=== PATIENT | male | born 1955 | race Hispanic/Latino ===

== ENCOUNTER 2018-09-12 23:32 | Emergency (ER) | payer MEDICAID ==
[~2018-09-12 23:32] MED LIST: ATOR20TA65 PO; LISI10TA7 PO; METF-446 PO; METO25TA6 PO
[2018-09-13 00:01] LABS: BASOPHILS % (AUTO) 0.5 % (0.0-5.0); EOSINOPHILS % (AUTO) 2.2 % (0.0-8.0); HEMATOCRIT 47.9 % (42-54); LYMPHOCYTES % (AUTO) 23.1 % (21.0-51.0); MEAN CORPUSCULAR HEMOGLOBIN 31.3 pg (27.0-33.0); MEAN CORPUSCULAR HGB CONC 34.2 g/dL (32.0-36.0); MEAN CORPUSCULAR VOLUME 91.4 fL (79-99); NEUTROPHILS % (AUTO) 66.2 % (40.0-77.0); NUCLEATED RED BLOOD CELLS 0.1 % (0.0-0.19); PLATELET COUNT (AUTO) 318 K/uL (130-400); RED BLOOD CELL COUNT(AUTO) 5.24 MIL/uL (4.50-6.20); RED CELL DISTRIBUTION WIDTH 13.6 % (11.0-15.5); WHITE BLOOD COUNT (AUTO) 11.9 K/uL (4.8-10.8)
[2018-09-13 00:10] LABS: CREATININE 0.9 mg/dL (0.5-1.5); POTASSIUM 3.6 mmol/L (3.5-5.1)
[2018-09-13 00:13] LABS: INR 0.9 (0.85-1.15); PARTIAL THROMBOPLASTIN TIME 26.2 SEC (26.3-35.5); PROTHROMBIN TIME 9.5 SEC (9.6-11.6)
[2018-09-13 00:14] LABS: APPEARANCE,URINE Clear (CLEAR); BILIRUBIN,URINE Negative (NEGATIVE); COLOR,URINE Yellow (YELLOW); GLUCOSE, URINE (UA) >=1000 mg/dL (NEGATIVE); KETONES,URINE Trace mg/dL (NEGATIVE); LEUKOCYTE ESTERASE ,URINE Negative (NEGATIVE); NITRATE,URINE Negative (NEGATIVE); OCCULT BLOOD,URINE Trace (NEGATIVE); PROTEIN,URINE POS 2+ (NEGATIVE)
[2018-09-13 00:14] LABS: ALBUMIN 3.8 g/dL (3.5-5.0); BILIRUBIN,TOTAL 0.2 mg/dL (0.2-1.0); TOTAL PROTEIN, SERUM 7.7 g/dL (6.0-8.3)
[2018-09-13 00:21] LABS: BACTERIA,URINE None Seen /HPF (None Seen); MUCUS,URINE Few LPF (None Seen); SQUAMOUS EPITHELIAL CELL,UR Few /HPF (0-2); WBC,URINE None Seen /HPF (0-1)
[2018-09-13] MEDS ORDERED: SODIUM CHLORIDE 0.9% 1000ML 1,000 ML IV ONE (00:55)
[2018-09-13] MEDS ORDERED: MECLIZINE HCL 25 MG TABLET ONE (02:02)
== END 2018-09-13 02:16 | disposition home or self-care (01) ==
LOC: EDH 23:32
DX: H81.10 Benign paroxysmal vertigo, unspecified ear (principal); E86.9 Volume depletion, unspecified; E11.9 Type 2 diabetes mellitus without complications; E78.5 Hyperlipidemia, unspecified; I10 Essential (primary) hypertension; R79.1 Abnormal coagulation profile; Z72.0 Tobacco use; Z88.0 Allergy status to penicillin; Z96.60 Presence of unspecified orthopedic joint implant
CPT/HCPCS: 36415; 70450; 71045; 80053; 81001; 82550; 82948; 84484; 85025; 85610; 85730; 93005; 96360; 99284; J7030

== ENCOUNTER 2018-12-23 06:50 | Inpatient (IN) | payer MEDICAID ==
[~2018-12-23] VITALS: Ht 167.6 cm; Wt 65.5 kg
[2018-12-23 07:31] LABS: BASOPHILS % (AUTO) 0.5 % (0.0-5.0); EOSINOPHILS % (AUTO) 2.9 % (0.0-8.0); HEMATOCRIT 45.2 % (42-54); LYMPHOCYTES % (AUTO) 25.3 % (21.0-51.0); MEAN CORPUSCULAR HEMOGLOBIN 31.8 pg (27.0-33.0); MEAN CORPUSCULAR HGB CONC 34.9 g/dL (32.0-36.0); MEAN CORPUSCULAR VOLUME 91.2 fL (79-99); MONOCYTES % (AUTO) 8.3 % (3.0-13.0); PLATELET COUNT (AUTO) 279 K/uL (130-400); RED BLOOD CELL COUNT(AUTO) 4.96 MIL/uL (4.50-6.20); RED CELL DISTRIBUTION WIDTH 13.9 % (11.0-15.5); WHITE BLOOD COUNT (AUTO) 12.1 K/uL (4.8-10.8)
[2018-12-23 07:45] LABS: CREATININE 0.7 mg/dL (0.5-1.5); POTASSIUM 5.3 mmol/L (3.5-5.1)
[2018-12-23 07:56] LABS: ALBUMIN 3.5 g/dL (3.5-5.0); BILIRUBIN,TOTAL 0.5 mg/dL (0.2-1.0); TOTAL PROTEIN, SERUM 7.6 g/dL (6.0-8.3)
[2018-12-23 07:59] LABS: INR 0.99 (0.85-1.15); PARTIAL THROMBOPLASTIN TIME 28.9 SEC (26.3-35.5); PROTHROMBIN TIME 10.4 SEC (9.6-11.6)
[2018-12-23] MEDS ORDERED: SODIUM POLYSTYRENE SULFONATE 15 GM/60 ML ML ONE (08:37)
[2018-12-23] MEDS ORDERED: INSULIN HUMULIN R 100 UNIT/ML 3ML ONE (08:37)
[2018-12-23 09:34] LABS: APPEARANCE,URINE Clear (CLEAR); BILIRUBIN,URINE Negative (NEGATIVE); COLOR,URINE Yellow (YELLOW); GLUCOSE, URINE (UA) TRACE mg/dL (NEGATIVE); KETONES,URINE Negative (NEGATIVE); LEUKOCYTE ESTERASE ,URINE Negative (NEGATIVE); NITRATE,URINE Negative (NEGATIVE); OCCULT BLOOD,URINE Negative (NEGATIVE); PH,URINE 5.5 (5.0-8.0); PROTEIN,URINE POS 1+ mg/dL (NEGATIVE)
[2018-12-23 09:40] LABS: BACTERIA,URINE Rare /HPF (None Seen); MUCUS,URINE Rare LPF (None Seen); RBC,URINE 0-1 /HPF (0-1); SQUAMOUS EPITHELIAL CELL,UR Rare /HPF (0-2); WBC,URINE 0-1 /HPF (0-1)
[2018-12-23 09:42] LABS: AMPHET/METH SCREEN,URINE NEGATIVE (NEGATIVE); BARBITURATE SCREEN, URINE NEGATIVE (NEGATIVE); BENZODIAZEPINES SCREEN,URINE NEGATIVE (NEGATIVE); CANNABINOID SCREEN,URINE NEGATIVE (NEGATIVE); COCAINE SCREEN,URINE NEGATIVE (NEGATIVE); OPIATE SCREEN,URINE NEGATIVE (NEGATIVE); PHENCYCLIDINE SCREEN,URINE NEGATIVE (NEGATIVE)
[2018-12-23] MEDS ORDERED: ONDANSETRON HCL 4 MG/2 ML VIAL IV PRN (10:00)
[2018-12-23] MEDS ORDERED: LACTULOSE 20 GM/30 ML UDCUP PO PRN (10:00)
[2018-12-23] MEDS ORDERED: MAG HYDROX/AL HYDROX/SIMETH ES 30 ML SUSP UDCUP PO PRN (10:00)
[2018-12-23] MEDS ORDERED: ACETAMINOPHEN 325 MG TAB PO PRN ×2 (10:00)
[2018-12-23 10:20] LABS: HEMOGLOBIN A1C 7.6 % (4.0-6.0)
[2018-12-23] MEDS: NICOTINE 21 MG/ 24 HR PATCH TD SCH (11:00)
[2018-12-23] MEDS: INSULIN LISPRO 100 UNIT/ML 3ML SQ SCH ×2 (11:30→15:31)
[2018-12-23] MEDS: INSULIN HUMULIN R 100 UNIT/ML 3ML SQ SCH ×3 (11:30→21:00)
[2018-12-23] MEDS ORDERED: ASPIRIN 81MG TAB.CHEW ONE (11:51)
[2018-12-23] MEDS ORDERED: FAMOTIDINE/PF 20 MG/2 ML VIAL IV ONE (11:52)
--- NOTE | 2018-12-23 12:12 | NUR ---
DYSPHAGIA EVAL COMPLETED. -S/S OF ASPIRATION. RECOMMEND REGULAR, THIN LIQUIDS; PILLS WHOLE WITH LIQUIDS. PATIENT INFORMATION: Pt IS A 63 YEAR OLD MALE REFERRED FOR A BEDSIDE SWALLOW EVALUATION SECONDARY TO POSSIBLE CVA. Pt AAOX3 AND COOPERATIVE DURING THE EVALUATION. Pt REPORTS THAT HE HAS BEEN HAVING LEFT SIDED NUMBNESS SINCE JUNE OF 2018. Pt CURRENTLY ADMITTED SECONDARY TO SUSPECTED CVA AND LEFT HEMIPARESIS. Pt HAS A PAST MEDICAL HISTORY SIGNIFICANT FOR DM-NIDDM, HYPERLIPIDEMIA, HYPERTENSION, JOINT REPLACEMENT/SHOULDER SURGERY. EVALUATION: SWALLOW FUNCTION AND EFFICIENCY WITHIN FUNCTIONAL LIMITS. ORAL MOTOR COORDINATION, ROM AND STRENGTH WITHIN FUNCTIONAL LIMITS. PHARYNGEAL RESPONSE TIMELY WITH ADEQUATE LARYNGEAL ELEVATION/EXCURSION. NO S/S OF ASPIRATION PRESENT AT THE TIME OF THE EVALUATION. RECOMMENDATIONS: 1. REGULAR, THIN LIQUIDS; PILLS WHOLE WITH LIQUIDS. 2. COMPENSATORY STRATEGIES (PROPHYLAXIS): *SEATED AT 90 DEGREES G-CODES SWALLOWING: [id number] Addendum: 12/23/18 at 1218 by DEYVI WYNN [facility] Amended: Links added.
--- NOTE | 2018-12-23 14:40 | NUR ---
MEDS PT UNABLE TO GIVE ME MEDICATION LIST. DOES NOT KNOW. NO FAMILY AT BEDSIDE.
--- NOTE | 2018-12-23 15:08 | NUR ---
ARRIVAL TO FLOOR AAOX4 DENIES CP DENIES SOB DENIES NV NO COMPLAINTS. NOTED SOME LEFT SIDE WEAKNESS UPPER AND LOWER EXTREMITIES. SPEECH IS CLEAR. BREATHING PATTERN IS UNLABORED. ARRIVED WITH NO HOME MEDS. NO FAMILY AT BEDSIDE.
[2018-12-23 15:48] VITALS: BP 165/89
--- NOTE | 2018-12-23 16:30 | NUR ---
DINNER TOLERATED DINNER. NO COMPLAINTS DENIES PAIN. NO CHOKING NO GAGGING NOTED NO COUGHING NOTED. VISITOR AT BEDSIDE.
[2018-12-23] MEDS ORDERED: GABA-529 PO (18:33)
[2018-12-23] MEDS ORDERED: LOSA50TA64 PO (18:33)
[2018-12-23] MEDS ORDERED: GLYB-226 PO (18:33)
[2018-12-23] MEDS ORDERED: SIMV10TA6 PO (18:33)
[2018-12-23] MEDS ORDERED: MECL-111 PO (18:33)
[2018-12-23] MEDS ORDERED: ASPI-1026 PO (18:33)
--- NOTE | 2018-12-23 18:34 | NUR ---
MED LIST OBTAINED FROM [facility]ACIST J[facility]ONNY, ENTERED IN [employer].
[2018-12-23 19:38] VITALS: BP 157/83
[2018-12-23] MEDS ORDERED: HYDRALAZINE HCL 20 MG/ML VIAL IV PRN (19:45)
[2018-12-23] MEDS: FAMOTIDINE/PF 20 MG/2 ML VIAL IV SCH (21:34)
[2018-12-23] MEDS: ATORVASTATIN CALCIUM 40 MG TABLET PO SCH (21:34)
[2018-12-23] MEDS: INSULIN GLARGINE 100 UNITS/ML 10 ML VIAL SQ SCH (21:41)
[2018-12-24] VITALS (7 sets, daily range): BP systolic 147–166; BP diastolic 72–85
[2018-12-24 03:43] LABS: CHOLESTEROL 199 mg/dL (<200); HDL CHOLESTEROL 28 mg/dL (29-71); LDL DIRECT 144 mg/dL (0-99); TRIGLYCERIDES 214 mg/dL (30-200)
--- NOTE | 2018-12-24 04:02 | NUR ---
PATIENT ALERT AND ORIENTED ANSWERS QUESTIONS APPROPRIATELY. FOLLOWS COMMANDS. DENIES CHEST PAIN OR SOB. FACE SYMMETRICAL. PATIENT'S HOGSHEAD STRIPPER UNEQUAL. 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 NO DRIFT TO ARMS. DRIFT TO LLE. LIMB ATAXIA PRESENT BOTH LUE AND LLE. NO APHASIA NOTICED. NO DYSARTHRIA NOTICED. WILL CONTINUE TO MONITOR DEFICITS AND BLOOD PRESSURE. PRN BLOOD PRESSURE MED ORDERED BY AYAN OJEDA.
[2018-12-24] MEDS: INSULIN HUMULIN R 100 UNIT/ML 3ML SQ SCH ×4 (06:28→22:02)
[2018-12-24] MEDS: INSULIN LISPRO 100 UNIT/ML 3ML SQ SCH ×3 (06:28→16:20)
[2018-12-24] MEDS: ASPIRIN 81MG TAB.CHEW PO SCH (07:35)
[2018-12-24] MEDS: FAMOTIDINE/PF 20 MG/2 ML VIAL IV SCH ×2 (07:35→20:32)
[2018-12-24] MEDS: BUPROPION HCL 150 MG TABLET.SA PO SCH (07:36)
--- NOTE | 2018-12-24 08:00 | NUR ---
ASSESSMENT PT IS AAOX3 DENIES CP DENIES SOB DENIES NV NO COMPLAINTS AT THIS TIME, RESTING IN BED. NOTED LEFT SIDED WEAKNESS, SAME YESTERDAY. PENDING 2D ECHO AND DR TAO TO ROUND. PATIENT IS IN GOOD SPIRITS. CALL LIGHT WITHIN REACH. WELLBUTRIN NOT GIVEN, PATIENT STATES HE DOESN'T TAKE THIS TYPE OF MEDICATIONS AT HOME.
[2018-12-24] MEDS: NICOTINE 21 MG/ 24 HR PATCH TD SCH (08:40)
[2018-12-24 10:19] LABS: HEMATOCRIT 44.6 % (42-54); MEAN CORPUSCULAR HEMOGLOBIN 30.9 pg (27.0-33.0); MEAN CORPUSCULAR HGB CONC 33.3 g/dL (32.0-36.0); MEAN CORPUSCULAR VOLUME 92.9 fL (79-99); PLATELET COUNT (AUTO) 291 K/uL (130-400); RED CELL DISTRIBUTION WIDTH 14.2 % (11.0-15.5); WHITE BLOOD COUNT (AUTO) 14.6 K/uL (4.8-10.8)
[2018-12-24 10:26] LABS: CREATININE 0.7 mg/dL (0.5-1.5); POTASSIUM 3.5 mmol/L (3.5-5.1)
--- NOTE | 2018-12-24 11:45 | NUR ---
STATUS DR TAO ROUNDED, ORDERS RECEIVED.2D ECHO, MRI CERVICAL SPINE DONE.
--- NOTE | 2018-12-24 15:30 | NUR ---
DR TAO AWARE OF CERVICAL SPINE MRI RESULT ORDERED FOR DR SÁNCHEZ CONSULT IN AM. ORDER ENTERED IN CPOE.
--- NOTE | 2018-12-24 17:27 | NUR ---
Status Patient sitting up at bedside eating dinner, family is at bedside. No choking or gagging no coughing noted while patient is eating. Denies pain. Call light within reach.
--- NOTE | 2018-12-24 17:53 | NUR ---
DC PLAN VISITED WITH PATIENT. PATIENT LIVES ALONE. CANE AT HOME. SAYS HAD A LOT OF FREQUENT FALLS WANTS TO GOT TO FACILITY FOR THERAPY. EXPLAINED HE IS MEDICAID [employer]ALTHSPRING IF HE WANTS THERAPY THEN HE NEEDS HOME HEALTH. AFTER TALKING TO PATIENT AND FAMILY SAID HE CAN STAY WITH NIECE WHILE HE GETS THERAPY AND GETS STRONGER. AT THIS TIME HE IS NOT BED BOUND AND CAN PARTICIPATE IN ADL'S WOULD LIKELY NOT QUALIFY FOR [facility]. Addendum: 12/24/18 at 1758 by MARISEL SMITH RN CM Amended: Links added.
[2018-12-24] MEDS: ATORVASTATIN CALCIUM 40 MG TABLET PO SCH (20:32)
[2018-12-24] MEDS: LEVETIRACETAM 250 MG TABLET PO SCH (20:32)
[2018-12-24] MEDS: INSULIN GLARGINE 100 UNITS/ML 10 ML VIAL SQ SCH (21:13)
--- NOTE | 2018-12-25 03:25 | NUR ---
PATIENT RESTING IN BED. DENIES PAIN OR SOB. CONTINUES TO HAVE UPPER AND LOWER EXTREMITY WEAKNESS. FACE SYMMETRIC. TONGUE MIDLINE. NO SLURRED SPEECH. WILL CONTINUE TO MONITOR FOR INCREASE IN DEFICITS. NUERO CHECKS DONE Q 4H
[2018-12-25 04:56] VITALS: BP 126/64
[2018-12-25] MEDS: INSULIN LISPRO 100 UNIT/ML 3ML SQ SCH ×3 (06:20→16:39)
[2018-12-25] MEDS: INSULIN HUMULIN R 100 UNIT/ML 3ML SQ SCH ×4 (06:20→21:58)
[2018-12-25 07:00] VITALS: BP 144/66
[2018-12-25] MEDS: ASPIRIN 81MG TAB.CHEW PO SCH (10:11)
[2018-12-25] MEDS: BUPROPION HCL 150 MG TABLET.SA PO SCH (10:11)
[2018-12-25] MEDS: NICOTINE 21 MG/ 24 HR PATCH TD SCH (10:11)
[2018-12-25] MEDS: FAMOTIDINE/PF 20 MG/2 ML VIAL IV SCH ×2 (10:11→22:02)
[2018-12-25] MEDS: LEVETIRACETAM 250 MG TABLET PO SCH ×2 (10:11→22:02)
[2018-12-25 11:00] VITALS: BP 149/71
--- NOTE | 2018-12-25 15:31 | NUR ---
DR. SÁNCHEZ IS IN TO SEE PATIENT. MD PLANS FOR PATIENT TO HAVE SURGERY ON FRIDAY.
[2018-12-25 16:00] VITALS: BP 147/76
[2018-12-25 19:18] VITALS: BP 140/67
[2018-12-25] MEDS: INSULIN GLARGINE 100 UNITS/ML 10 ML VIAL SQ SCH (21:59)
[2018-12-25] MEDS: ATORVASTATIN CALCIUM 40 MG TABLET PO SCH (22:02)
[2018-12-25 23:51] VITALS: BP 158/75
[2018-12-26 04:05] VITALS: BP 150/81
[2018-12-26] MEDS: INSULIN HUMULIN R 100 UNIT/ML 3ML SQ SCH ×4 (06:11→20:10)
[2018-12-26] MEDS: INSULIN LISPRO 100 UNIT/ML 3ML SQ SCH ×3 (06:12→16:39)
[2018-12-26 07:00] VITALS: BP 138/77
[2018-12-26] MEDS: NICOTINE 21 MG/ 24 HR PATCH TD SCH (09:57)
[2018-12-26] MEDS: ASPIRIN 81MG TAB.CHEW PO SCH (09:57)
[2018-12-26] MEDS: LEVETIRACETAM 250 MG TABLET PO SCH ×2 (09:57→20:09)
[2018-12-26] MEDS: BUPROPION HCL 150 MG TABLET.SA PO SCH (09:57)
[2018-12-26] MEDS: FAMOTIDINE/PF 20 MG/2 ML VIAL IV SCH ×2 (09:57→20:10)
[2018-12-26 11:00] VITALS: BP 159/85
--- NOTE | 2018-12-26 11:10 | NUR ---
PATIENT IS AMBULATING ON THE HALLWAYS WITH PHYSICAL THERAPY.
[2018-12-26 16:00] VITALS: BP 151/80
--- NOTE | 2018-12-26 16:30 | NUR ---
DR. BRENNER IS IN TO SEE PATIENT. INFORMED MD OF THE PATIENT'S C/O LEFT LEG NUMBNESS. NO ORDER MADE AT THIS TIME. WILL CONTINUE TO MONITOR.
[2018-12-26 19:11] VITALS: BP 164/61
[2018-12-26] MEDS: ATORVASTATIN CALCIUM 40 MG TABLET PO SCH (20:09)
[2018-12-26] MEDS: INSULIN GLARGINE 100 UNITS/ML 10 ML VIAL SQ SCH (20:16)
[2018-12-26] MEDS ORDERED: CEFUROXIME SODIUM 1.5 GM VIAL ONE (21:43)
[2018-12-26 23:30] VITALS: BP 159/90
[2018-12-27 03:53] VITALS: BP 157/81
[2018-12-27] MEDS: INSULIN HUMULIN R 100 UNIT/ML 3ML SQ SCH ×4 (05:46→21:00)
[2018-12-27] MEDS: INSULIN LISPRO 100 UNIT/ML 3ML SQ SCH ×3 (06:32→17:16)
[2018-12-27 07:00] VITALS: BP 142/74
[2018-12-27] MEDS ORDERED: ACETAMINOPHEN-CODEINE 300/30MG TAB PO PRN (07:45)
[2018-12-27] MEDS: ASPIRIN 81MG TAB.CHEW PO SCH (08:36)
[2018-12-27] MEDS: FAMOTIDINE/PF 20 MG/2 ML VIAL IV SCH ×2 (08:36→21:48)
[2018-12-27] MEDS: LEVETIRACETAM 250 MG TABLET PO SCH ×2 (08:36→21:48)
[2018-12-27] MEDS: BUPROPION HCL 150 MG TABLET.SA PO SCH (08:36)
[2018-12-27] MEDS: NICOTINE 21 MG/ 24 HR PATCH TD SCH (10:00)
[2018-12-27 11:00] VITALS: BP 139/72
[2018-12-27] MEDS ORDERED: TRAMADOL HCL 50 MG TABLET PO PRN (12:15)
[2018-12-27 16:00] VITALS: BP 151/81
[2018-12-27 19:29] VITALS: BP 149/78
--- NOTE | 2018-12-27 19:51 | NUR ---
SBAR REPORT HANDED TO AMALIA JOHANSEN. PATIENT IS SCHEDULED FOR SURGERY WITH DR. SÁNCHEZ TOMORROW AT NOON. [place] [facility] [place]ED DURING THE WEEKEND. CD OF CT AND MRI IN CHART.
[2018-12-27] MEDS: INSULIN GLARGINE 100 UNITS/ML 10 ML VIAL SQ SCH (21:00)
[2018-12-27] MEDS: ATORVASTATIN CALCIUM 40 MG TABLET PO SCH (21:48)
[2018-12-27 23:54] VITALS: BP 166/85
[2018-12-28] VITALS (25 sets, daily range): BP systolic 131–167; BP diastolic 64–91
[2018-12-28] MEDS: INSULIN LISPRO 100 UNIT/ML 3ML SQ SCH ×3 (06:15→17:00)
[2018-12-28] MEDS: INSULIN HUMULIN R 100 UNIT/ML 3ML SQ SCH ×4 (06:15→22:55)
--- NOTE | 2018-12-28 07:48 | NUR ---
Pt. remained NPO ,consent was obtained from pt. Dr. Bautista here and updated with pt. condition and informed pt. consented himself and daughter is coming at 0900 am.which is according to the pt.Bedside report given to incoming NOD using SBAR .all questions answered.Pt. is scheduled for surgery @12noon as per order.
[2018-12-28] MEDS: BUPROPION HCL 150 MG TABLET.SA PO SCH (10:17)
[2018-12-28] MEDS: ASPIRIN 81MG TAB.CHEW PO SCH (10:17)
[2018-12-28] MEDS: LEVETIRACETAM 250 MG TABLET PO SCH ×2 (10:17→19:58)
[2018-12-28] MEDS: FAMOTIDINE/PF 20 MG/2 ML VIAL IV SCH ×2 (10:18→19:58)
[2018-12-28] MEDS: NICOTINE 21 MG/ 24 HR PATCH TD SCH (10:18)
[2018-12-28] MEDS ORDERED: MIDAZOLAM HCL 1 MG/ML 2ML VIAL ONE (12:05)
[2018-12-28] MEDS ORDERED: ONDANSETRON HCL 4 MG/2 ML VIAL ONE (12:05)
[2018-12-28] MEDS ORDERED: NEOSTIGMINE 5MG/5ML SYR IV ONE (12:05)
[2018-12-28] MEDS ORDERED: LIDOCAINE PF 2% 5ML ABBOJECT ONE (12:05)
[2018-12-28] MEDS ORDERED: DEXAMETHASONE SOD PHOSPHATE 10MG/ML 1ML VIAL ONE (12:05)
[2018-12-28] MEDS ORDERED: SUCCINYLCHOLINE 200MG/10ML SYR ONE (12:05)
[2018-12-28] MEDS ORDERED: GLYCOPYRROLATE 1 MG/5 ML SYRINGE ONE (12:05)
[2018-12-28] MEDS ORDERED: PROPOFOL 10 MG/ML 20ML VIAL IV ONE (12:06)
[2018-12-28] MEDS ORDERED: FENTANYL CITRATE PF 50 MCG/1 ML 2ML VIAL ONE ×2 (12:06→14:49)
[2018-12-28] MEDS ORDERED: ROCURONIUM 10MG/1ML SYR 10 MG/ML ML ONE ×2 (12:06→15:03)
[2018-12-28] MEDS ORDERED: SODIUM CHLORIDE 0.9% 1000ML 1,000 ML IV ONE (12:28)
[2018-12-28] MEDS ORDERED: CLINDAMYCIN 900 MG/D5% WATER 50 ML IV ONE (12:28)
[2018-12-28] MEDS ORDERED: BUPIVACAINE/EPI/PF 0.25% 30ML VIAL IJ ONE ×2 (13:02→14:28)
[2018-12-28] MEDS ORDERED: BACITRACIN 50,000 UNIT VIAL ONE (13:03)
[2018-12-28] MEDS ORDERED: THROMBIN-JMI 20000 UNIT KIT TP ONE (13:03)
[2018-12-28] MEDS ORDERED: EPHEDRINE SULFATE 50 MG/ML AMPULE ONE (13:54)
[2018-12-28] MEDS ORDERED: MANNITOL 20% 500ML BAG 500 ML IV ONE (13:55)
[2018-12-28] MEDS ORDERED: DEXAMETHASONE SOD PHOSPHATE 4 MG/ML 1ML VIAL ONE (15:08)
[2018-12-28] MEDS ORDERED: PROMETHAZINE HCL 25 MG/ML 1ML AMPULE IM PRN (16:15)
[2018-12-28] MEDS ORDERED: MORPHINE SULFATE 2 MG/ML 1ML SYG IVP PRN (16:15)
[2018-12-28] MEDS ORDERED: SODIUM CHLORIDE 0.9% 10 ML VIAL IVP PRN (16:15)
[2018-12-28] MEDS ORDERED: MECLIZINE HCL 25 MG TABLET PO PRN (16:15)
[2018-12-28] MEDS ORDERED: MEPERIDINE-PF 25 MG/ML SYG ONE ×2 (16:35→16:49)
--- NOTE | 2018-12-28 16:58 | NUR ---
PHENERGAN 12.5 MG IVP GIVEN AT THIS TIME. Addendum: 12/28/18 at 1700 by CHUCK KING RN RN Amended: Links added.
--- NOTE | 2018-12-28 17:15 | NUR ---
PHENERGAN GIVEN AT 1658, WAS GIVEN IM, RT DELTOID. Addendum: 12/28/18 at 1716 by CHUCK KING RN RN Amended: Links added.
[2018-12-28] MEDS: LACTATED RINGERS 1000ML 1,000 ML IV SCH (18:21)
[2018-12-28] MEDS: DEXAMETHASONE SOD PHOSPHATE 4 MG/ML 1ML VIAL IVP SCH (18:21)
[2018-12-28] MEDS: ATORVASTATIN CALCIUM 40 MG TABLET PO SCH (19:58)
[2018-12-28] MEDS: SIMVASTATIN 10 MG TABLET PO SCH (19:58)
[2018-12-28] MEDS: CLINDAMYCIN 900 MG/D5% WATER 50 ML IV SCH ×2 (19:58→22:56)
[2018-12-28] MEDS ORDERED: GABAPENTIN 100 MG CAPSULE ONE (20:00)
[2018-12-28] MEDS: GABAPENTIN 100 MG CAPSULE PO SCH (20:00)
[2018-12-28] MEDS: GLYBURIDE METFORMIN PO SCH (21:00)
[2018-12-28] MEDS: HYDROCODONE/ACETAMINOPHEN 5/325 MG TAB PO PRN (22:53)
[2018-12-28] MEDS: INSULIN GLARGINE 100 UNITS/ML 10 ML VIAL SQ SCH (22:57)
[2018-12-29] VITALS (7 sets, daily range): BP systolic 138–151; BP diastolic 72–80
[2018-12-29] MEDS: DEXAMETHASONE SOD PHOSPHATE 4 MG/ML 1ML VIAL IVP SCH ×5 (00:15→23:31)
[2018-12-29] MEDS: CLINDAMYCIN 900 MG/D5% WATER 50 ML IV SCH ×3 (02:19→11:43)
[2018-12-29] MEDS: LACTATED RINGERS 1000ML 1,000 ML IV SCH ×2 (05:28→18:02)
[2018-12-29] MEDS: INSULIN LISPRO 100 UNIT/ML 3ML SQ SCH ×3 (05:58→18:00)
[2018-12-29] MEDS: INSULIN HUMULIN R 100 UNIT/ML 3ML SQ SCH ×4 (06:00→21:45)
--- NOTE | 2018-12-29 06:05 | NUR ---
BURTON CATHETER REMOVED. WHITISH YELLOW DISCHARGE NOTED ON BURTON CATHETER. PT D/T AT 1200
[2018-12-29] MEDS: ASPIRIN 81MG TAB.CHEW PO SCH ×2 (07:46→10:04)
[2018-12-29] MEDS: GLYBURIDE METFORMIN PO SCH ×2 (09:00→19:47)
[2018-12-29] MEDS: HYDROCODONE/ACETAMINOPHEN 5/325 MG TAB PO PRN ×3 (10:03→23:32)
[2018-12-29] MEDS: BUPROPION HCL 150 MG TABLET.SA PO SCH (10:04)
[2018-12-29] MEDS: LEVETIRACETAM 250 MG TABLET PO SCH ×2 (10:04→19:47)
[2018-12-29] MEDS: GABAPENTIN 100 MG CAPSULE PO SCH ×3 (10:04→19:49)
[2018-12-29] MEDS: FAMOTIDINE/PF 20 MG/2 ML VIAL IV SCH ×2 (10:04→19:47)
[2018-12-29] MEDS: ASPIRIN 325 MG TABLET PO SCH (10:04)
[2018-12-29] MEDS: LOSARTAN 50 MG TABLET PO SCH (10:04)
[2018-12-29] MEDS: NICOTINE 21 MG/ 24 HR PATCH TD SCH (10:05)
--- NOTE | 2018-12-29 15:39 | NUR ---
CM Note: SNF placement, ins does not cover CM met with pt and family discussed MD recommendations for short term placement rehab. At this time pt and family made aware insurance does not cover rehab placement. Advised pt and family to follow up with pcp for maybe possible outpatient PT on dc. Pt and family verbalized understanding. Primary nurse aware. CM to cont to follow up.
[2018-12-29] MEDS: SIMVASTATIN 10 MG TABLET PO SCH (19:47)
[2018-12-29] MEDS: ATORVASTATIN CALCIUM 40 MG TABLET PO SCH (19:47)
[2018-12-29] MEDS: INSULIN GLARGINE 100 UNITS/ML 10 ML VIAL SQ SCH (21:46)
[2018-12-30 03:45] VITALS: BP 140/74
[2018-12-30 04:41] LABS: BASOPHILS % (AUTO) 0.1 % (0.0-5.0); HEMATOCRIT 39.8 % (42-54); LYMPHOCYTES % (AUTO) 3.9 % (21.0-51.0); MEAN CORPUSCULAR HEMOGLOBIN 30.8 pg (27.0-33.0); MEAN CORPUSCULAR HGB CONC 33.1 g/dL (32.0-36.0); MONOCYTES % (AUTO) 7.3 % (3.0-13.0); NEUTROPHILS % (AUTO) 88.7 % (40.0-77.0); PLATELET COUNT (AUTO) 313 K/uL (130-400); RED BLOOD CELL COUNT(AUTO) 4.28 MIL/uL (4.50-6.20); RED CELL DISTRIBUTION WIDTH 14.1 % (11.0-15.5); WHITE BLOOD COUNT (AUTO) 22.6 K/uL (4.8-10.8)
[2018-12-30 04:47] LABS: CREATININE 0.8 mg/dL (0.5-1.5); POTASSIUM 4.1 mmol/L (3.5-5.1)
[2018-12-30] MEDS: DEXAMETHASONE SOD PHOSPHATE 4 MG/ML 1ML VIAL IVP SCH ×3 (05:58→18:07)
[2018-12-30] MEDS: INSULIN LISPRO 100 UNIT/ML 3ML SQ SCH ×3 (06:24→16:54)
[2018-12-30] MEDS: INSULIN HUMULIN R 100 UNIT/ML 3ML SQ SCH ×4 (06:51→21:45)
[2018-12-30 08:08] VITALS: BP 168/85
[2018-12-30] MEDS: LACTATED RINGERS 1000ML 1,000 ML IV SCH ×2 (08:08→21:46)
[2018-12-30] MEDS: BUPROPION HCL 150 MG TABLET.SA PO SCH (08:48)
[2018-12-30] MEDS: LOSARTAN 50 MG TABLET PO SCH (08:48)
[2018-12-30] MEDS: GABAPENTIN 100 MG CAPSULE PO SCH ×3 (08:48→21:46)
[2018-12-30] MEDS: HYDROCODONE/ACETAMINOPHEN 5/325 MG TAB PO PRN ×2 (08:48→21:49)
[2018-12-30] MEDS: ASPIRIN 325 MG TABLET PO SCH (08:48)
[2018-12-30] MEDS: FAMOTIDINE/PF 20 MG/2 ML VIAL IV SCH ×2 (08:49→21:46)
[2018-12-30] MEDS: LEVETIRACETAM 250 MG TABLET PO SCH ×2 (08:49→21:46)
[2018-12-30] MEDS: GLYBURIDE METFORMIN PO SCH ×2 (09:00→21:00)
[2018-12-30] MEDS: NICOTINE 21 MG/ 24 HR PATCH TD SCH (09:51)
--- NOTE | 2018-12-30 11:41 | NUR ---
CM Note: Dept Aging to follow pt at house on DC. Mago w/Dept of aging came to visit pt and family as per family request for possible provider/caregiver or any assistance available for pt, family was given provider info this morning and is aware that most are private pay. As per Mago will be visiting pt at home to eval home setting and see what assistance they may be of help. Primary nurse aware. CM to con to follow up.
[2018-12-30 12:51] VITALS: BP 149/70
--- NOTE | 2018-12-30 16:12 | NUR ---
RDSCREEN - LOS X 7 Patient s/p Decompression. Patient tolerating Regular Diet order with fair PO intake at 50%. Patient reports no GI distress. Rec to add 75gm CC, Heart healthy diet modifiers. Patient monitored labs: BUN 21, Glu 200, TG 214, LDL 144, HDL 28. RD to continue to continue to monitor. Please notify RD as nutritional concerns arise. Thank you. Addendum: 12/30/18 at [address] Amended: Links added.
[2018-12-30 16:25] VITALS: BP 143/78
[2018-12-30 19:09] VITALS: BP 155/76
[2018-12-30] MEDS: SIMVASTATIN 10 MG TABLET PO SCH (21:00)
[2018-12-30] MEDS: INSULIN GLARGINE 100 UNITS/ML 10 ML VIAL SQ SCH (21:44)
[2018-12-30] MEDS: ATORVASTATIN CALCIUM 40 MG TABLET PO SCH (21:46)
[2018-12-30 23:38] VITALS: BP 157/79
[2018-12-31] MEDS: DEXAMETHASONE SOD PHOSPHATE 4 MG/ML 1ML VIAL IVP SCH ×4 (00:58→17:22)
[2018-12-31 03:38] VITALS: BP 149/79
[2018-12-31 05:41] LABS: BASOPHILS % (AUTO) 0.2 % (0.0-5.0); HEMATOCRIT 40.5 % (42-54); LYMPHOCYTES % (AUTO) 5.9 % (21.0-51.0); MEAN CORPUSCULAR HEMOGLOBIN 30.9 pg (27.0-33.0); MEAN CORPUSCULAR HGB CONC 33.6 g/dL (32.0-36.0); MEAN CORPUSCULAR VOLUME 91.8 fL (79-99); MONOCYTES % (AUTO) 6.4 % (3.0-13.0); NEUTROPHILS % (AUTO) 87.5 % (40.0-77.0); PLATELET COUNT (AUTO) 313 K/uL (130-400); RED BLOOD CELL COUNT(AUTO) 4.41 MIL/uL (4.50-6.20); RED CELL DISTRIBUTION WIDTH 14.1 % (11.0-15.5); WHITE BLOOD COUNT (AUTO) 16.6 K/uL (4.8-10.8)
[2018-12-31 05:49] LABS: CREATININE 0.8 mg/dL (0.5-1.5)
[2018-12-31] MEDS: INSULIN LISPRO 100 UNIT/ML 3ML SQ SCH ×3 (06:05→16:38)
[2018-12-31] MEDS: INSULIN HUMULIN R 100 UNIT/ML 3ML SQ SCH ×4 (06:06→21:11)
[2018-12-31 07:31] VITALS: BP 164/81
[2018-12-31] MEDS: ASPIRIN 81MG TAB.CHEW PO SCH (08:46)
[2018-12-31] MEDS: GLYBURIDE METFORMIN PO SCH ×2 (09:00→21:00)
[2018-12-31] MEDS: FAMOTIDINE/PF 20 MG/2 ML VIAL IV SCH ×2 (09:25→21:27)
[2018-12-31] MEDS: LOSARTAN 50 MG TABLET PO SCH (09:26)
[2018-12-31] MEDS: ASPIRIN 325 MG TABLET PO SCH (09:26)
[2018-12-31] MEDS: BUPROPION HCL 150 MG TABLET.SA PO SCH (09:26)
[2018-12-31] MEDS: LEVETIRACETAM 250 MG TABLET PO SCH ×2 (09:26→21:27)
[2018-12-31] MEDS: GABAPENTIN 100 MG CAPSULE PO SCH ×3 (09:26→21:27)
[2018-12-31] MEDS: NICOTINE 21 MG/ 24 HR PATCH TD SCH (09:26)
[2018-12-31] MEDS: HYDROCODONE/ACETAMINOPHEN 5/325 MG TAB PO PRN (09:34)
[2018-12-31] MEDS: LACTATED RINGERS 1000ML 1,000 ML IV SCH (10:48)
[2018-12-31 10:56] VITALS: BP 158/86
[2018-12-31 16:11] VITALS: BP 139/75
[2018-12-31 19:23] VITALS: BP_SYST 135; BP_SYST 156; BP_DIAS 76; BP_DIAS 79
[2018-12-31] MEDS: INSULIN GLARGINE 100 UNITS/ML 10 ML VIAL SQ SCH (21:14)
[2018-12-31] MEDS: SIMVASTATIN 10 MG TABLET PO SCH (21:27)
[2018-12-31] MEDS: ATORVASTATIN CALCIUM 40 MG TABLET PO SCH (21:27)
[2018-12-31] MEDS: GUAIFENESIN-DM 200/20 MG 10 ML PO PRN (21:43)
[2018-12-31 23:33] VITALS: BP 159/85
[2019-01-01] MEDS: LACTATED RINGERS 1000ML 1,000 ML IV SCH (00:08)
[2019-01-01 03:50] VITALS: BP 158/80
[2019-01-01 04:56] LABS: HEMATOCRIT 40.7 % (42-54); LYMPHOCYTES % (AUTO) 10.9 % (21.0-51.0); MEAN CORPUSCULAR HEMOGLOBIN 31.6 pg (27.0-33.0); MEAN CORPUSCULAR HGB CONC 34.1 g/dL (32.0-36.0); MEAN CORPUSCULAR VOLUME 92.6 fL (79-99); MONOCYTES % (AUTO) 10.9 % (3.0-13.0); NEUTROPHILS % (AUTO) 78.2 % (40.0-77.0); PLATELET COUNT (AUTO) 311 K/uL (130-400); RED BLOOD CELL COUNT(AUTO) 4.39 MIL/uL (4.50-6.20); RED CELL DISTRIBUTION WIDTH 13.7 % (11.0-15.5); WHITE BLOOD COUNT (AUTO) 15.9 K/uL (4.8-10.8)
[2019-01-01 04:58] LABS: CREATININE 0.7 mg/dL (0.5-1.5); POTASSIUM 3.8 mmol/L (3.5-5.1)
[2019-01-01] MEDS: INSULIN HUMULIN R 100 UNIT/ML 3ML SQ SCH ×2 (06:18→11:30)
[2019-01-01] MEDS: GUAIFENESIN-DM 200/20 MG 10 ML PO PRN (06:20)
[2019-01-01] MEDS ORDERED: TYL3 PO (07:12)
[2019-01-01] MEDS: INSULIN LISPRO 100 UNIT/ML 3ML SQ SCH ×2 (07:30→11:42)
[2019-01-01 08:00] VITALS: BP 153/76
[2019-01-01] MEDS: GLYBURIDE METFORMIN PO SCH (09:00)
--- NOTE | 2019-01-01 11:17 | NUR ---
ELENO Aguilar expressed concern about patient's discharge because the patient is weak and has no equipment to help him at home. Nurse also sated that patient had no support at home. As a follow up, I discussed the issue with Cat Swamper Elif. According to Elif, she has spoken with the family. That the family has agreed to take turns in supporting the patient at home. Also, an arrangement had been made with the department of aging to visit the patient at home once discharged to assess his needs and possible assistance. The information has been passed on to discharging nurse Aguilar to discharge patient accordingly.
[2019-01-01] MEDS: FAMOTIDINE/PF 20 MG/2 ML VIAL IV SCH (11:32)
[2019-01-01] MEDS: NICOTINE 21 MG/ 24 HR PATCH TD SCH (11:33)
[2019-01-01] MEDS: ASPIRIN 325 MG TABLET PO SCH (11:34)
[2019-01-01] MEDS: LEVETIRACETAM 250 MG TABLET PO SCH (11:34)
[2019-01-01] MEDS: BUPROPION HCL 150 MG TABLET.SA PO SCH (11:37)
[2019-01-01] MEDS: GABAPENTIN 100 MG CAPSULE PO SCH (11:37)
[2019-01-01] MEDS: LOSARTAN 50 MG TABLET PO SCH (11:38)
[2019-01-01 11:55] VITALS: BP 157/73
--- NOTE | 2019-01-01 14:02 | NUR ---
PT D/C HOME USING TEACH BACK TECHNIQUE RE; NEW MEDS, HOME MEDS, S/S TO WATCH FOR AND WHEN TO CALL MD OR 911. AOX3, DENIES ANY PAIN, DENIES ANY QUESTIONS AFTER DRESSING CHANGE TO CERVICAL AREA TO FEMALE COUSIN AT BEDSIDE. IV OUT INTACT, TELE REMOVED. FOLLOW UP WITH DR. KUMAR 12/29/2018 AT 2:00PM CALL IF UNABLE TO ATTEND APPOINTMENT AT PHONE [phone]. FOLLOW UP WITH DR. SÁNCHEZ ON 01/08/2019 AT 09:10AM. CALL IF UNABLE TO ATTEND APPOINTMENT AT PHONE [phone]. REFER TO CHART AND D/C INSTRUCTION RE; ADDITIONAL TEACHING. PT WILL STAY WITH FEMALE COUSIN SHE WILL PROVIDE DAILY CARE. MAKE SURE YOU ARRIVE TO YOUR APPOINTMENT WITH DR. SÁNCHEZ WITH THE STAPLE REMOVAL KIT. FOR MORE INSTRUCTION REFER TO SPINE SURGERY DISCHARGE INSTRUCTIONS GIVEN TO YOU AT DISCHARGE. DRESSING CHANGED BEFORE DISCHARGE HOME, DO NOT REMOVE DRESSING MAY REINFORCE DRESSING WITH EXTRA TAPE OR UNLESS SOILED OR DRAINAGE NOTED MAY CHANGE WITH STERILE GAUZE. CALL YOUR PRIMARY DOCTOR IF HAVING FEVERS GREATER THAN 101.0, DRAINAGE, HOT TO TOUCH OR PAINFUL AND SWELLING NOTED TO SURGICAL SITE.
== END 2019-01-01 13:59 | disposition home or self-care (01) | DRG 320 ==
LOC: EDH 06:50 → EDHIP 06:51 → 2AH 15:42 → 4BH 12-28 17:36
PROVIDERS: ADMIT Internal Medicine; ATTEND Internal Medicine
PROC: 01N10ZZ Release Cervical Nerve, Open Approach (ICD-10-PCS; principal; 2018-12-28 13:47)
PROC: 4A11X4G Monitoring of Peripheral Nervous Electrical Activity, Intraoperative, External Approach (ICD-10-PCS; 2018-12-28 13:47)
PROC: BR111ZZ Fluoroscopy of Cervical Disc(s) using Low Osmolar Contrast (ICD-10-PCS; 2018-12-28 13:47)
DX: M48.02 Spinal stenosis, cervical region (principal); I63.9 Cerebral infarction, unspecified; G95.89 Other specified diseases of spinal cord; G25.3 Myoclonus; G81.94 Hemiplegia, unspecified affecting left nondominant side; E11.9 Type 2 diabetes mellitus without complications; D72.829 Elevated white blood cell count, unspecified; E78.2 Mixed hyperlipidemia; F17.200 Nicotine dependence, unspecified, uncomplicated; I10 Essential (primary) hypertension; M25.78 Osteophyte, vertebrae; Z91.81 History of falling; Z88.0 Allergy status to penicillin; Z79.82 Long term (current) use of aspirin; Z86.73 Personal history of transient ischemic attack (TIA), and cerebral infarction without residual deficits; Z82.49 Family history of ischemic heart disease and other diseases of the circulatory system
CPT/HCPCS: 36415; 70450; 70551; 71045; 71046; 72020; 72141; 73502; 73562; 80048; 80053; 80061; 80305; 81001; 82550; 82948; 83036; 83874; 84484; 85025; 85027; 85610; 85730; 92610; 93005; 93306; 93880; 97039; A4344; C1713; G0378; J0330; J0360; J0697; J1100; J1815; J2001; J2175; J2250; J2405; J2704; J2710; J3010; J3490; J7030; J7120

== ENCOUNTER 2019-09-30 11:27 | Emergency (ER) | payer MEDICAID ==
[~2019-09-30 11:27] MED LIST changes: +ASPI-1026 PO; -ATOR20TA65 PO; +GABA-529 PO; +GLYB1TAB30 PO; -LISI10TA7 PO; +LOSA50TA64 PO; +MECL-160 PO; -METF-446 PO; -METO25TA6 PO; +SIMV10TA97 PO; +TYL3 PO
[2019-09-30] MEDS ORDERED: SODIUM CHLORIDE 0.9% 1000ML 1,000 ML IV ONE (11:32)
[2019-09-30] MEDS ORDERED: ONDANSETRON HCL 4 MG/2 ML VIAL ONE (11:32)
[2019-09-30 11:45] LABS: BASOPHILS % (AUTO) 0.4 % (0.0-5.0); EOSINOPHILS % (AUTO) 0.7 % (0.0-8.0); HEMATOCRIT 49.1 % (42-54); LYMPHOCYTES % (AUTO) 13.9 % (21.0-51.0); MEAN CORPUSCULAR HEMOGLOBIN 29.2 pg (27.0-33.0); MEAN CORPUSCULAR VOLUME 88.6 fL (79-99); MONOCYTES % (AUTO) 7.1 % (3.0-13.0); NEUTROPHILS % (AUTO) 77.5 % (40.0-77.0); PLATELET COUNT (AUTO) 275 K/uL (130-400); RED BLOOD CELL COUNT(AUTO) 5.54 MIL/uL (4.50-6.20); RED CELL DISTRIBUTION WIDTH 12.8 % (11.0-15.5); WHITE BLOOD COUNT (AUTO) 11.9 K/uL (4.8-10.8)
[2019-09-30 12:02] LABS: ALANINE AMINOTRANSFERASE 44 U/L (12-78); ALBUMIN 4.1 g/dL (3.5-5.0); ASPARTATE AMINOTRANSFERASE 21 U/L (10-37); BILIRUBIN,TOTAL 0.6 mg/dL (0.2-1.0); CARBON DIOXIDE 31 mmol/L (21-32); CHLORIDE 98 mmol/L (101-111); CREATINE KINASE, TOTAL 216 U/L (21-232); CREATININE 0.9 mg/dL (0.5-1.5); GLOMERULAR FILTR. RATE CALC 91 mL/min (>60); GLUCOSE,RANDOM 203 mg/dL (70-105); POTASSIUM 4.1 mmol/L (3.5-5.1); SODIUM SERUM 136 mmol/L (136-145); TOTAL PROTEIN, SERUM 8.5 g/dL (6.0-8.3); UREA NITROGEN, BLOOD 14 mg/dL (7-18)
[2019-09-30 12:05] LABS: LIPASE < 50 U/L (114-286)
[2019-09-30] MEDS ORDERED: FAMOTIDINE/PF 20 MG/2 ML VIAL IV ONE (12:49)
[2019-09-30 12:57] LABS: APPEARANCE,URINE Turbid (CLEAR); BILIRUBIN,URINE Negative (NEGATIVE); COLOR,URINE Yellow (YELLOW); GLUCOSE, URINE (UA) 500 mg/dL (NEGATIVE); KETONES,URINE 15 mg/dL (NEGATIVE); LEUKOCYTE ESTERASE ,URINE Negative (NEGATIVE); NITRATE,URINE Negative (NEGATIVE); OCCULT BLOOD,URINE Small (NEGATIVE); PH,URINE 7.5 (5.0-8.0); PROTEIN,URINE 300 mg/dL (NEGATIVE); UROBILINOGEN,URINE 0.2 mg/dL (0.2-1.0)
[2019-09-30 13:10] LABS: AMORPHOUS SEDIMENT,UR Moderate /LPF (None Seen); BACTERIA,URINE Few /HPF (None Seen); MUCUS,URINE Few LPF (None Seen); SQUAMOUS EPITHELIAL CELL,UR Rare /HPF (0-2); WBC,URINE 0-1 /HPF (0-1)
[2019-09-30] MEDS ORDERED: SUCRALFATE 1 GM TABLET ONE (13:43)
== END 2019-09-30 16:42 | disposition home or self-care (01) ==
LOC: EDH 11:27
DX: E86.0 Dehydration (principal); R19.7 Diarrhea, unspecified; E83.52 Hypercalcemia; R11.2 Nausea with vomiting, unspecified; E11.9 Type 2 diabetes mellitus without complications; E78.5 Hyperlipidemia, unspecified; I10 Essential (primary) hypertension; Z86.73 Personal history of transient ischemic attack (TIA), and cerebral infarction without residual deficits; Z88.0 Allergy status to penicillin
CPT/HCPCS: 36415; 80053; 81001; 82330; 82550; 83690; 84484; 85025; 93005; 96361; 96374; 96375; 99284; J2405; J3490; J7030

== ENCOUNTER 2020-05-02 05:47 | Inpatient (IN) | payer MEDICAID ==
[~2020-05-02] VITALS: Ht 167.6 cm; Wt 69.0 kg
[2020-05-02] MEDS ORDERED: SODIUM CHLORIDE 0.9% 1000ML 2,000 ML IV ONE (06:14)
[2020-05-02] MEDS ORDERED: ONDANSETRON HCL 4 MG/2 ML VIAL ONE (06:14)
[2020-05-02 06:41] LABS: BASOPHILS % (AUTO) 0.6 % (0.0-5.0); EOSINOPHILS % (AUTO) 0.1 % (0.0-8.0); HEMATOCRIT 42.9 % (42-54); LYMPHOCYTES % (AUTO) 9.7 % (21.0-51.0); MEAN CORPUSCULAR HGB CONC 34.3 g/dL (32.0-36.0); MEAN CORPUSCULAR VOLUME 87.6 fL (79-99); MONOCYTES % (AUTO) 9.8 % (3.0-13.0); PLATELET COUNT (AUTO) 396 K/uL (130-400); RED CELL DISTRIBUTION WIDTH 11.9 % (11.0-15.5); WHITE BLOOD COUNT (AUTO) 18.6 K/uL (4.8-10.8)
[2020-05-02 06:50] LABS: ABG OXYGEN SATURATION 34.7 % (95.0-99.0); BASE EXCESS,VENOUS BLOOD GAS -1.4 (-2.0-3.0); HCO3,VENOUS BLOOD GAS 25.1 (21.0-28.0); PCO2,VENOUS BLOOD GAS 50 (35-48); PH,VENOUS BLOOD GAS 7.322 (7.350-7.450)
[2020-05-02 06:53] LABS: APPEARANCE,URINE Clear (CLEAR); BILIRUBIN,URINE Negative (NEGATIVE); COLOR,URINE Yellow (YELLOW); GLUCOSE, URINE (UA) >=1000 mg/dL (NEGATIVE); KETONES,URINE Trace mg/dL (NEGATIVE); LEUKOCYTE ESTERASE ,URINE Negative (NEGATIVE); NITRATE,URINE Negative (NEGATIVE); OCCULT BLOOD,URINE Negative (NEGATIVE); PROTEIN,URINE Negative (NEGATIVE); UROBILINOGEN,URINE 0.2 mg/dL (0.2-1.0)
[2020-05-02 07:00] LABS: BACTERIA,URINE Rare /HPF (None Seen); RBC,URINE 0-1 /HPF (0-1); SQUAMOUS EPITHELIAL CELL,UR Rare /HPF (0-2); WBC,URINE 0-1 /HPF (0-1)
[2020-05-02 07:16] LABS: ALBUMIN 2.9 g/dL (3.5-5.0); BILIRUBIN,TOTAL 0.5 mg/dL (0.2-1.0); CREATININE 1.6 mg/dL (0.5-1.5); MAGNESIUM 2.1 mg/dL (1.80-2.40); POTASSIUM 3.3 mmol/L (3.5-5.1)
[2020-05-02] MEDS ORDERED: INSULIN HUMULIN R 100 UNIT/ML 3ML ONE ×2 (07:22→07:51)
[2020-05-02] MEDS ORDERED: SODIUM CHLORIDE 0.9% 100 ML IV ONE (07:52)
[2020-05-02] MEDS: SODIUM CHLORIDE 0.9% 1000ML 1,000 ML IV SCH ×4 (08:22→23:55)
[2020-05-02] MEDS ORDERED: SODIUM CHLORIDE 0.9% 1000ML 1,000 ML IV SCH ×2 (08:22)
[2020-05-02] MEDS ORDERED: DEXTROSE 5 %-0.45 % NACL 1,000 ML IV PRN (08:22)
[2020-05-02] MEDS ORDERED: ACETAMINOPHEN 325 MG TAB PO PRN ×2 (08:30)
[2020-05-02] MEDS ORDERED: HYDRALAZINE HCL 20 MG/ML VIAL IV PRN (08:30)
[2020-05-02] MEDS ORDERED: ONDANSETRON HCL 4 MG/2 ML VIAL IVP PRN (08:30)
[2020-05-02] MEDS ORDERED: POTASSIUM CHLORIDE 20MEQ/100ML 100 ML IV ONE (08:45)
[2020-05-02] MEDS: LEVOFLOXACIN 500 MG/D5W 100 ML 100 ML IV SCH (09:00)
[2020-05-02 09:28] LABS: ABG HCO3 26.1 mmol/L (21.0-28.0); ABG OXYGEN SATURATION 97.2 % (95.0-99.0); ABG PCO2 39 mmHg (35-48)
[2020-05-02 11:23] LABS: BASOPHILS % (AUTO) 0.6 % (0.0-5.0); EOSINOPHILS % (AUTO) 0.3 % (0.0-8.0); HEMATOCRIT 37.6 % (42-54); LYMPHOCYTES % (AUTO) 15.9 % (21.0-51.0); MEAN CORPUSCULAR HEMOGLOBIN 30.5 pg (27.0-33.0); MEAN CORPUSCULAR HGB CONC 35.6 g/dL (32.0-36.0); MEAN CORPUSCULAR VOLUME 85.5 fL (79-99); MONOCYTES % (AUTO) 12.9 % (3.0-13.0); NEUTROPHILS % (AUTO) 65.5 % (40.0-77.0); PLATELET COUNT (AUTO) 364 K/uL (130-400); RED CELL DISTRIBUTION WIDTH 11.9 % (11.0-15.5); WHITE BLOOD COUNT (AUTO) 18.6 K/uL (4.8-10.8)
[2020-05-02 11:38] LABS: CREATININE 1.2 mg/dL (0.5-1.5); MAGNESIUM 2.1 mg/dL (1.80-2.40); POTASSIUM 3.5 mmol/L (3.5-5.1)
[2020-05-02] MEDS ORDERED: LEVOFLOXACIN 500 MG/D5W 100 ML 100 ML ONE (11:50)
[2020-05-02 16:45] VITALS: BP 148/63
[2020-05-02 17:12] LABS: MAGNESIUM 2.1 mg/dL (1.80-2.40); POTASSIUM 3.3 mmol/L (3.5-5.1)
[2020-05-02] MEDS ORDERED: SODIUM CHLORIDE 0.9% 100 ML IV SCH (18:00)
[2020-05-02] MEDS: INSULIN HUMULIN R 100 UNIT/ML 3ML SQ SCH ×2 (18:23→21:52)
[2020-05-02] MEDS: ENOXAPARIN SODIUM 30 MG/0.3 ML SQ SCH (18:26)
[2020-05-02] MEDS: FAMOTIDINE/PF 20 MG/2 ML VIAL IV SCH (20:07)
[2020-05-02 20:12] VITALS: BP 130/59
[2020-05-02 20:25] LABS: POTASSIUM 3.4 mmol/L (3.5-5.1)
[2020-05-02] MEDS ORDERED: INSULIN GLARGINE 100 UNITS/ML 10 ML VIAL SQ SCH (21:00)
[2020-05-03] VITALS (7 sets, daily range): BP systolic 116–149; BP diastolic 66–70
[2020-05-03] MEDS: SODIUM CHLORIDE 0.9% 1000ML 1,000 ML IV SCH ×3 (05:19→13:37)
[2020-05-03] MEDS: INSULIN HUMULIN R 100 UNIT/ML 3ML SQ SCH ×7 (05:34→21:08)
[2020-05-03 06:42] LABS: CREATININE 0.9 mg/dL (0.5-1.5); MAGNESIUM 1.9 mg/dL (1.80-2.40); POTASSIUM 3.1 mmol/L (3.5-5.1)
[2020-05-03] MEDS ORDERED: LIDOCAINE HCL-MPF 1% 2ML VIAL ONE (06:54)
[2020-05-03] MEDS: POTASSIUM CHLORIDE 10MEQ/100ML 100 ML IV PRN ×2 (06:57→18:23)
--- NOTE | 2020-05-03 06:57 | NUR ---
potassium 3.1 Covered with first bag per protocol. Reported to AM shift.
[2020-05-03] MEDS: LEVOFLOXACIN 500 MG/D5W 100 ML 100 ML IV SCH (09:00)
[2020-05-03] MEDS ORDERED: INSULIN GLARGINE 100 UNITS/ML 10 ML VIAL SQ SCH (09:00)
[2020-05-03] MEDS: ENOXAPARIN SODIUM 30 MG/0.3 ML SQ SCH (09:01)
[2020-05-03] MEDS: FAMOTIDINE/PF 20 MG/2 ML VIAL IV SCH ×2 (09:01→21:02)
[2020-05-03] MEDS ORDERED: MAGNESIUM 2GM PREMIX 50ML 50 ML IV SCH (12:00)
[2020-05-03 14:46] LABS: BASOPHILS % (AUTO) 0.5 % (0.0-5.0); EOSINOPHILS % (AUTO) 0.8 % (0.0-8.0); HEMATOCRIT 29.7 % (42-54); LYMPHOCYTES % (AUTO) 20.6 % (21.0-51.0); MEAN CORPUSCULAR HEMOGLOBIN 30.1 pg (27.0-33.0); MEAN CORPUSCULAR HGB CONC 34.3 g/dL (32.0-36.0); MEAN CORPUSCULAR VOLUME 87.6 fL (79-99); MONOCYTES % (AUTO) 12.4 % (3.0-13.0); NEUTROPHILS % (AUTO) 61.7 % (40.0-77.0); NUCLEATED RED BLOOD CELLS 0.2 % (0.0-0.19); PLATELET COUNT (AUTO) 286 K/uL (130-400); RED BLOOD CELL COUNT(AUTO) 3.39 MIL/uL (4.50-6.20); RED CELL DISTRIBUTION WIDTH 12.5 % (11.0-15.5); WHITE BLOOD COUNT (AUTO) 12.1 K/uL (4.8-10.8)
[2020-05-03] MEDS: INSULIN GLARGINE 100 UNITS/ML 10 ML VIAL SQ SCH (21:08)
[2020-05-04] MEDS: SODIUM CHLORIDE 0.9% 1000ML 1,000 ML IV SCH ×2 (00:19→10:25)
[2020-05-04 04:01] VITALS: BP 130/66
[2020-05-04 04:30] LABS: BASOPHILS % (AUTO) 0.5 % (0.0-5.0); EOSINOPHILS % (AUTO) 1.3 % (0.0-8.0); HEMATOCRIT 29.4 % (42-54); LYMPHOCYTES % (AUTO) 21.7 % (21.0-51.0); MEAN CORPUSCULAR HEMOGLOBIN 30.3 pg (27.0-33.0); MEAN CORPUSCULAR HGB CONC 34.4 g/dL (32.0-36.0); MEAN CORPUSCULAR VOLUME 88.3 fL (79-99); MONOCYTES % (AUTO) 12.3 % (3.0-13.0); NEUTROPHILS % (AUTO) 60.5 % (40.0-77.0); NUCLEATED RED BLOOD CELLS 0.2 % (0.0-0.19); PLATELET COUNT (AUTO) 276 K/uL (130-400); RED BLOOD CELL COUNT(AUTO) 3.33 MIL/uL (4.50-6.20); RED CELL DISTRIBUTION WIDTH 12.7 % (11.0-15.5); WHITE BLOOD COUNT (AUTO) 10.6 K/uL (4.8-10.8)
[2020-05-04 05:00] LABS: ALBUMIN 2.2 g/dL (3.5-5.0); BILIRUBIN,TOTAL 0.2 mg/dL (0.2-1.0); CREATININE 0.8 mg/dL (0.5-1.5); POTASSIUM 3.5 mmol/L (3.5-5.1); TOTAL PROTEIN, SERUM 5.2 g/dL (6.0-8.3)
[2020-05-04] MEDS: INSULIN HUMULIN R 100 UNIT/ML 3ML SQ SCH ×5 (05:46→15:55)
[2020-05-04 08:33] VITALS: BP 183/63
[2020-05-04] MEDS: LEVOFLOXACIN 500 MG/D5W 100 ML 100 ML IV SCH (08:33)
[2020-05-04] MEDS: FAMOTIDINE/PF 20 MG/2 ML VIAL IV SCH (08:33)
[2020-05-04] MEDS: ENOXAPARIN SODIUM 30 MG/0.3 ML SQ SCH (08:34)
[2020-05-04] MEDS ORDERED: INSULIN GLARGINE 100 UNITS/ML 10 ML VIAL SQ SCH (09:00)
[2020-05-04 11:51] VITALS: BP 124/59
[2020-05-04 15:56] VITALS: BP 156/60
--- NOTE | 2020-05-04 16:14 | NUR ---
DCP IA done by Andrés Roche RN. As per Andrés spoke to pt's son on facesheet Wil Brown JR . Pt is independent prior to admission, lives alone, son lives close by. Pt has a cane and walker, uses [email or web address] for meds. Vebalized daughter Jessica Brown daughter also lives close by and to assist on dc. Feels safe to go back home, still drives, son and daughter able to assist with transportation and needs as necessary. DC plan to home once stable. CM to continue to follow up. Addendum: 05/04/20 at 1617 by KRZYSZTOF CARRERA LVN CM Amended: Links added.
[2020-05-04] MEDS ORDERED: AEC81 PO (18:26)
[2020-05-04] MEDS ORDERED: PEN-105 MC (18:26)
[2020-05-04] MEDS ORDERED: INSU100I35 SQ ×2 (18:26)
[2020-05-04 19:37] VITALS: BP 151/70
[2020-05-04] MEDS: INSULIN GLARGINE 100 UNITS/ML 10 ML VIAL SQ SCH (20:36)
--- NOTE | 2020-05-04 20:42 | NUR ---
PATIENT HAS BEEN DISCHARGE HOME. ALL INSTRUCTIONS REVIEWED WITH PATIENT UTILIZING TEACH BACK. 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 REVIEWED WITH PATIENT NEW MEDICATIONS, S/S TO MONITOR FOR AND WHEN TO SEEK IMMEDIATE MEDICAL CARE. FOLLOW UP APPOINTMENTS DISCUSSED. PT VOICED UNDERSTANDING TO ALL INSTRUCTIONS. HE STATES HIS NIECE WILL ASSIST WITH INSULIN. PIV TO RIGHT AC REMOVED WITH CATHETER INTACT. PATIENT ESCORTED VIA W/C BY HUMBERTO NICOLE.
== END 2020-05-04 21:05 | disposition home or self-care (01) | DRG 420 ==
LOC: EDH 05:47 → EDHIP 05:48 → 3CH 16:26
PROVIDERS: ADMIT Hospitalist; ATTEND Hospitalist
DX: E11.10 Type 2 diabetes mellitus with ketoacidosis without coma (principal); E87.6 Hypokalemia; D72.829 Elevated white blood cell count, unspecified; E11.22 Type 2 diabetes mellitus with diabetic chronic kidney disease; E86.0 Dehydration; F17.200 Nicotine dependence, unspecified, uncomplicated; I12.9 Hypertensive chronic kidney disease with stage 1 through stage 4 chronic kidney disease, or unspecified chronic kidney disease; N18.9 Chronic kidney disease, unspecified; E78.2 Mixed hyperlipidemia; N17.9 Acute kidney failure, unspecified; Z79.899 Other long term (current) drug therapy; Z82.49 Family history of ischemic heart disease and other diseases of the circulatory system; Z83.3 Family history of diabetes mellitus; Z91.11 Patient's noncompliance with dietary regimen; Z88.0 Allergy status to penicillin
CPT/HCPCS: 36415; 36600; 70450; 71045; 80048; 80053; 81001; 82010; 82435; 82550; 82803; 82947; 82948; 83036; 83605; 83735; 84132; 84295; 84484; 85025; 87040; 93005; G0378; J1650; J1815; J1956; J2405; J3480; J3490; J7030

== ENCOUNTER 2020-07-19 12:46 | Inpatient (IN) | payer MEDICAID ==
[~2020-07-19 12:46] MED LIST changes: +AEC81 PO; -ASPI-1026 PO; -GLYB1TAB30 PO; +INSU100I35 SQ; -MECL-160 PO; +PEN-105 MC; -TYL3 PO
[2020-07-19 13:16] LABS: BASOPHILS % (AUTO) 0.2 % (0.0-5.0); LYMPHOCYTES % (AUTO) 19.1 % (21.0-51.0); MEAN CORPUSCULAR HEMOGLOBIN 26.5 pg (27.0-33.0); MEAN CORPUSCULAR HGB CONC 26.9 g/dL (32.0-36.0); MEAN CORPUSCULAR VOLUME 98.6 fL (79-99); MONOCYTES % (AUTO) 5.7 % (3.0-13.0); NEUTROPHILS % (AUTO) 73.4 % (40.0-77.0); NUCLEATED RED BLOOD CELLS 0.6 % (0.0-0.19); PLATELET COUNT (AUTO) 687 K/uL (130-400); RED BLOOD CELL COUNT(AUTO) 2.11 MIL/uL (4.50-6.20); RED CELL DISTRIBUTION WIDTH 15.1 % (11.0-15.5)
[2020-07-19 13:22] LABS: APPEARANCE,URINE Cloudy (CLEAR); BILIRUBIN,URINE Negative (NEGATIVE); COLOR,URINE Yellow (YELLOW); GLUCOSE, URINE (UA) >=1000 mg/dL (NEGATIVE); KETONES,URINE Trace mg/dL (NEGATIVE); LEUKOCYTE ESTERASE ,URINE Negative (NEGATIVE); NITRATE,URINE Negative (NEGATIVE); OCCULT BLOOD,URINE Nonhemolyzed Trace (NEGATIVE); PROTEIN,URINE Trace mg/dL (NEGATIVE); UROBILINOGEN,URINE 0.2 mg/dL (0.2-1.0)
[2020-07-19 13:28] LABS: ABG BASE EXCESS -25.1 mmol/L (-2.0-3.0); ABG HCO3 5.1 mmol/L (21.0-28.0); ABG OXYGEN SATURATION 95.5 % (95.0-99.0); ABG PCO2 22 mmHg (35-48)
[2020-07-19 13:28] LABS: HEMATOCRIT 20.8 % (42-54); WHITE BLOOD COUNT (AUTO) 30.9 K/uL (4.8-10.8)
[2020-07-19] MEDS ORDERED: INSULIN HUMULIN R 100 UNIT/ML 3ML ONE ×2 (13:29→14:01)
[2020-07-19 13:34] LABS: AMORPHOUS SEDIMENT,UR Moderate /LPF (None Seen); BACTERIA,URINE Rare /HPF (None Seen); RBC,URINE 0-1 /HPF (0-1); SQUAMOUS EPITHELIAL CELL,UR Rare /HPF (0-2); WBC,URINE 0-1 /HPF (0-1)
[2020-07-19 13:43] LABS: INR 1.04 (0.85-1.15); PARTIAL THROMBOPLASTIN TIME 22.9 SEC (26.3-35.5); PROTHROMBIN TIME 11.2 SEC (9.6-11.6)
[2020-07-19] MEDS ORDERED: SODIUM BICARB 50MEQ 50ML VIAL 100 ML ONE (13:44)
[2020-07-19 13:54] LABS: LYMPHOCYTES % (MANUAL) 29 % (22-44); MAN.DIFF COMMENT-IMPRESSION MANUAL DIFFERENTIAL; MONOCYTES % (MANUAL) 8 % (2-9); PLATELET MORPHOLOGY COMMENT MARKED INCREASE; SEGMENTED NEUTROPHILS % 63 % (40-70)
[2020-07-19 14:03] LABS: ALBUMIN 2.6 g/dL (3.5-5.0); BILIRUBIN,TOTAL 0.4 mg/dL (0.2-1.0); CREATININE 2.2 mg/dL (0.5-1.5); POTASSIUM 4.4 mmol/L (3.5-5.1)
[2020-07-19 14:07] LABS: TROPONIN I 3.7 ng/mL (0.00-0.06)
[2020-07-19] MEDS ORDERED: PANTOPRAZOLE 40 MG/VIAL IVP SCH ×2 (14:30→21:00)
[2020-07-19] MEDS ORDERED: PHARMACY COMMUNICATION MISC SCH (14:30)
[2020-07-19] MEDS ORDERED: NOREPINEPHRINE 4MG/NS 250ML 250 ML IV ONE (14:30)
[2020-07-19] MEDS ORDERED: PHARMACY COMMUNICATION MISC STA (14:32)
[2020-07-19 14:33] LABS: ALCOHOL, BLOOD < 3 mg/dL (0-10)
[2020-07-19] MEDS ORDERED: SODIUM BICARB 50MEQ 50ML VIAL 150 ML ONE (14:38)
[2020-07-19] MEDS ORDERED: SODIUM CHLORIDE 0.9% 1000ML 1,000 ML IV SCH (14:45)
[2020-07-19] MEDS ORDERED: LACTULOSE 20 GM/30 ML UDCUP PO PRN (14:45)
[2020-07-19] MEDS ORDERED: SODIUM CHLORIDE 0.9% IV SCH ×2 (14:45→16:30)
[2020-07-19] MEDS ORDERED: SODIUM BICARB IV SCH ×2 (14:45→16:30)
[2020-07-19] MEDS ORDERED: SODIUM CHLORIDE 0.9% IV ONE (14:45)
[2020-07-19] MEDS ORDERED: NITROGLYCERIN 0.4 MG SL TAB SL PRN (14:45)
[2020-07-19] MEDS ORDERED: PROPOFOL 1000 MG/100 ML 100 ML IV ONE (14:47)
[2020-07-19] MEDS ORDERED: FENTANYL 2500MCG+NS 250ML 250 ML IV ONE (14:47)
[2020-07-19] MEDS ORDERED: OCTREOTIDE ACETATE 1,250 MCG in SODIUM CHLORIDE 0.9% 250 ML IV NR (14:48)
[2020-07-19] MEDS ORDERED: PANTOPRAZOLE SODIUM 80 MG in SODIUM CHLORIDE 0.9% 100 ML IV NR (14:49)
[2020-07-19 15:23] LABS: HEMOGLOBIN A1C 9.4 % (4.0-6.0)
[2020-07-19 16:01] LABS: HEMATOCRIT 28.4 % (42-54)
[2020-07-19 16:28] LABS: ABG BASE EXCESS -21.7 mmol/L (-2.0-3.0); ABG HCO3 7.1 mmol/L (21.0-28.0); ABG OXYGEN SATURATION 99.6 % (95.0-99.0); ABG PCO2 26 mmHg (35-48)
[2020-07-19] MEDS ORDERED: FUROSEMIDE 10 MG/ML 4ML VIAL ONE (16:37)
[2020-07-19] MEDS ORDERED: PHENYLEPHRINE HCL 10 MG/ML 1ML VIAL IV ONE ×2 (16:56→18:13)
[2020-07-19] MEDS ORDERED: MEROPENEM 1 GM VIAL IVP SCH (17:15)
[2020-07-19] MEDS ORDERED: LINEZOLID 600 MG/ISO-OSM 300 ML IV SCH (17:15)
[2020-07-19] MEDS ORDERED: LIDOCAINE HCL 1% 20 ML VIAL ONE ×2 (17:19→17:28)
[2020-07-19] MEDS ORDERED: SODIUM CHLORIDE 0.9% 250 ML IV ONE (18:18)
[2020-07-19] MEDS ORDERED: LEVOFLOXACIN 750 MG/D5W 150 ML 150 ML ONE (18:27)
[2020-07-19] MEDS ORDERED: PANTOPRAZOLE 40 MG/VIAL ONE (18:27)
[2020-07-19 18:49] LABS: HEMATOCRIT 26.8 % (42-54)
== END 2020-07-19 19:20 | disposition expired | DRG 720 ==
LOC: EDH 12:46 → EDHIP 12:47
PROVIDERS: ADMIT Hospitalist; ATTEND Hospitalist
PROC: 5A1935Z Respiratory Ventilation, Less than 24 Consecutive Hours (ICD-10-PCS; principal; 2020-07-19)
PROC: 0BH17EZ Insertion of Endotracheal Airway into Trachea, Via Natural or Artificial Opening (ICD-10-PCS; 2020-07-19)
PROC: 30233N1 Transfusion of Nonautologous Red Blood Cells into Peripheral Vein, Percutaneous Approach (ICD-10-PCS; 2020-07-19)
PROC: 02HV33Z Insertion of Infusion Device into Superior Vena Cava, Percutaneous Approach (ICD-10-PCS; 2020-07-19)
PROC: B548ZZA Ultrasonography of Superior Vena Cava, Guidance (ICD-10-PCS; 2020-07-19)
PROC: 06HY33Z Insertion of Infusion Device into Lower Vein, Percutaneous Approach (ICD-10-PCS; 2020-07-19)
PROC: 5A12012 Performance of Cardiac Output, Single, Manual (ICD-10-PCS; 2020-07-19)
DX: A41.9 Sepsis, unspecified organism (principal); I10 Essential (primary) hypertension; E78.5 Hyperlipidemia, unspecified; R65.21 Severe sepsis with septic shock; J96.00 Acute respiratory failure, unspecified whether with hypoxia or hypercapnia; E11.10 Type 2 diabetes mellitus with ketoacidosis without coma; K92.2 Gastrointestinal hemorrhage, unspecified; N17.9 Acute kidney failure, unspecified; R53.81 Other malaise; R34 Anuria and oliguria; E87.2 Acidosis; I21.A1 Myocardial infarction type 2; D62 Acute posthemorrhagic anemia; I69.354 Hemiplegia and hemiparesis following cerebral infarction affecting left non-dominant side; Z20.828 Contact with and (suspected) exposure to other viral communicable diseases; Z91.19 Patient's noncompliance with other medical treatment and regimen; Z88.0 Allergy status to penicillin; Z82.49 Family history of ischemic heart disease and other diseases of the circulatory system
CPT/HCPCS: 31500; 36415; 36600; 71045; 80053; 81001; 82010; 82270; 82435; 82550; 82803; 82947; 82948; 83036; 83605; 83735; 83874; 84132; 84145; 84295; 84484; 85014; 85018; 85025; 85610; 85730; 86850; 86900; 86901; 86922; 87040; 87088; 87426; 92950; 93005; 94002; C1752; C9113; G0378; J1815; J1940; J1956; J2020; J2354; J2370; J2704; J3010; J3490; J7030; J7040; J7050; P9016; U0003